=== PATIENT | male | born 1975 | race Caucasian/White ===

== ENCOUNTER 2021-09-02 13:42 | Emergency (ER) | payer SELFPAY ==
[2021-09-02 14:30] LABS: #Basophils 0.1 thou/uL (0.0-0.2); #Eosinphils 0.2 thou/uL (0.0-0.7); #Monocytes 1.1 thou/uL (0.11-0.59); %Basophils 1.2 % (0.0-1.0); %Eosinophils 1.2 % (0.0-10.0); %Monocytes 9.1 % (0.0-10.0); %Neutrophils 72.5 % (42.0-75.0); Hemoglobin 13.7 g/dL (14.0-18.0); Mean Corpuscular HGB CONC 32.7 g/dL (32.0-36.0); Mean Corpuscular Hemoglobin 31.5 pg (27.0-31.0); Mean Corpuscular Volume 96.2 fL (78.0-98.0); Mean Platelet Volume 6.3 fL (7.4-10.4); Platelet Count 290 thou/uL (130-400); RBC Distribution Width 13.2 % (11.5-14.5); Red Blood Cell (RBC) Count 4.36 mill/uL (4.70-6.10); White Blood Cell (WBC) Count 12.4 thou/uL (4.8-10.8)
[2021-09-02] MEDS ORDERED: Sodium Chloride 0.9% 100 ML ONE (14:34)
[2021-09-02] MEDS ORDERED: Piperacillin/Tazobactam 4.5 GM VIAL ONE (14:34)
[2021-09-02] MEDS ORDERED: Sodium Chloride 0.9% 250 ML 0 ML ONE (14:34)
[2021-09-02] MEDS ORDERED: Vancomycin HCl 750 MG VIAL ONE (14:34)
[2021-09-02] MEDS ORDERED: Sodium Chloride 0.9% 2,000 ML ONE (14:34)
[2021-09-02 14:40] LABS: ALT (SGPT) 72 U/L (8-55); AST (SGOT) 87 U/L (5-34); Albumin 3.3 g/dL (3.5-5.0); Alkaline Phosphatase 68 U/L (40-110); Anion Gap 17 mmol/L (10-20); BUN (Urea Nitrogen) 8 mg/dL (8.9-20.6); Bilirubin, Total 1.7 mg/dL (0.2-1.2); Calc. Creatinine Clearance 0 mL/min (70-130); Calcium 8.6 mg/dL (7.8-10.44); Carbon Dioxide 19 mmol/L (22-29); Chloride 95 mmol/L (98-107); Glucose 97 mg/dL (70-105); Protein, Total 7.3 g/dL (6.0-8.3); Sodium 128 mmol/L (136-145)
[2021-09-02 14:57] LABS: Potassium 2.8 mmol/L (3.5-5.1)
[2021-09-02] MEDS ORDERED: Clindamycin/D5W 900 mg/50 ml Premix Bag ONE (15:03)
[2021-09-02] MEDS ORDERED: Potassium Chloride 20 MEQ/100 ML PREMIX BAG ONE (15:12)
== END 2021-09-02 15:22 | disposition short-term general hospital (02) ==
LOC: MADERS 13:42
DX: A41.9 Sepsis, unspecified organism (principal); L02.31 Cutaneous abscess of buttock; E87.6 Hypokalemia; E87.1 Hypo-osmolality and hyponatremia; F17.210 Nicotine dependence, cigarettes, uncomplicated
CPT/HCPCS: 71045; 80053; 83605; 83880; 84484; 85025; 87040; 93005; 96365; 96375; J2543; J3370; J3480; J3490; J7050

== ENCOUNTER 2022-06-10 11:32 | Emergency (ER) | payer SELFPAY | END 2022-06-10 12:09 | disposition left against medical advice (07) | LOC: MADERS 11:32 | DX: M79.18 Myalgia, other site (principal); F17.210 Nicotine dependence, cigarettes, uncomplicated | CPT/HCPCS: 99283 ==

== ENCOUNTER 2022-11-25 09:54 | Emergency (ER) | payer SELFPAY ==
[~2022-11-25 09:54] MED LIST: Iopamidol 370 76% 100 ML VIAL ONE
[2022-11-25 10:54] LABS: #Basophils 0.2 thou/uL (0.0-0.2); #Eosinphils 0.2 thou/uL (0.0-0.7); #Lymphocytes 2.3 thou/uL (1.20-3.40); #Monocytes 1.1 thou/uL (0.11-0.59); #Neutrophils 13.5 thou/uL (1.40-6.50); %Lymphocytes 13.1 % (21.0-51.0); %Monocytes 6.2 % (0.0-10.0); %Neutrophils 78.7 % (42.0-75.0); Hemoglobin 15.5 g/dL (14.0-18.0); Mean Corpuscular HGB CONC 33.3 g/dL (32.0-36.0); Mean Corpuscular Hemoglobin 29.6 pg (27.0-31.0); Mean Corpuscular Volume 88.8 fl (78.0-98.0); Mean Platelet Volume 5.6 fL (7.4-10.4); Platelet Count 414 10x3/uL (130-400); RBC Distribution Width 11.9 % (11.5-14.5); Red Blood Cell (RBC) Count 5.23 mill/uL (4.70-6.10); White Blood Cell (WBC) Count 17.1 10x3/uL (4.8-10.8)
[2022-11-25 11:10] LABS: ALT (SGPT) 32 U/L (8-55); AST (SGOT) 25 U/L (5-34); Alkaline Phosphatase 75 U/L (40-110); Anion Gap 17 mmol/L (10-20); BUN (Urea Nitrogen) 9 mg/dL (8.9-20.6); Bilirubin, Total 0.7 mg/dL (0.2-1.2); Calc. Creatinine Clearance 0 mL/min (70-130); Carbon Dioxide 21 mmol/L (22-29); Chloride 100 mmol/L (98-107); Estimated GFR 110; Globulin 4.6 g/dL (2.4-3.5); Glucose 82 mg/dL (70-105); Magnesium 2.1 mg/dL (1.6-2.6); Potassium 3.6 mmol/L (3.5-5.1); Protein, Total 8.6 g/dL (6.0-8.3); Sodium 134 mmol/L (136-145)
[2022-11-25] MEDS ORDERED: Lactated Ringer's 1,000 ML ONE (11:33)
[2022-11-25] MEDS ORDERED: metroNIDAZOLE 500 MG/100 ML BAG ONE (11:33)
[2022-11-25 12:34] LABS: Bilirubin Negative (Negative); Blood, Urine Negative (Negative); Clarity Clear (Clear); Glucose, Urine (Dipstick) Negative (Negative); Ketone, Urine Negative (Negative); Leukocyte Negative (Negative); Nitrite Negative (Negative); Protein, Urine (Dipstick) Negative (Neg-Trace); Urobilinogen 0.2 mg/dL (Less than 2); pH, Urine 6.5 (5.0-9.0)
[2022-11-25 13:08] LABS: SARS-CoV-2 NAA Rapid Test Not Detected (NotDetected)
== END 2022-11-25 14:13 | disposition short-term general hospital (02) ==
LOC: MADERS 09:54
DX: A41.9 Sepsis, unspecified organism (principal); K61.1 Rectal abscess; K63.89 Other specified diseases of intestine; Z20.822 Contact with and (suspected) exposure to COVID-19; F17.210 Nicotine dependence, cigarettes, uncomplicated
CPT/HCPCS: 36415; 74177; 80053; 81003; 83605; 83735; 85025; 87040; 94760; 96365; 96367; J1956; J7120; Q9967; U0002

== ENCOUNTER 2023-11-01 18:20 | Emergency (ER) | payer SELFPAY ==
[2023-11-01] MEDS ORDERED: cefTRIAXone (ROCEPHIN) 1 GM VIAL ONE (18:49)
[2023-11-01] MEDS ORDERED: Lidocaine 1% PF 5 ML VIAL ONE (18:49)
== END 2023-11-01 19:01 | disposition home or self-care (01) ==
LOC: MADERS 18:20
DX: L02.31 Cutaneous abscess of buttock (principal); F17.210 Nicotine dependence, cigarettes, uncomplicated
CPT/HCPCS: 96372; 99282; J0696